=== PATIENT | female | born 1965 ===

== ENCOUNTER 2020-08-12 06:14 | Day surgery (SDC) | payer OTHER ==
[2020-08-12] MEDS ORDERED: NEXIUM 24HR20 MG PO (10:07)
== END 2020-08-12 11:46 | disposition home or self-care (01) ==
LOC: AMB-ENDOS 06:14
PROVIDERS: ATTEND Surgery
DX: D13.0 Benign neoplasm of esophagus (principal); K44.9 Diaphragmatic hernia without obstruction or gangrene